=== PATIENT | female | born 1960 | race Caucasian/White ===

== ENCOUNTER 2017-03-14 17:43 | Emergency (ER) | payer OTHER ==
[2017-03-14 17:47] VITALS: BMI 27.4
[2017-03-14] MEDS ORDERED: ACETAMINOPHEN 325 MG TABLET (FP) ONE (19:04)
[2017-03-14] MEDS ORDERED: SODIUM CHLORIDE 0.9% 500 ML INFUS.BAG IV ONE (19:05)
[2017-03-14] MEDS ORDERED: ACETAMINOPHEN 500 MG TABLET (FP) PO ONE (19:13)
--- NOTE | 2017-03-14 19:20 | PDOC ---
History of Present Illness - General History Source: Patient Exam Limitations: No Limitations - History of Present Illness Initial Comments: 03/14/17 19:25 The patient is a 56 year old female with a significant past medical history of hypertension who presents to the ED with complaints of generalized malaise for one day. The patients was recently seen in the ED and was diagnosed with the flu and the patient is concerned that she has the flu as well. The patient reports back pain, myalgia, arthralgia, and a subjective fever. The patient also reports a burning sensation in her tongue a dry mouth Denies chest pain or shortness of breath. Denies abdominal pain, nausea, vomiting, or diarrhea. Denies any other symptoms. <John Justin - Last Filed: 03/14/17 19:30> <Kimi Bashir - Last Filed: 03/14/17 20:13> - General Chief Complaint: Pain Stated Complaint: HEADACHE JOINT PAIN Time Seen by Provider: 03/14/17 17:49 Past History <John Justin - Last Filed: 03/14/17 19:30> - Past Medical History HTN: Yes - Psycho/Social/Smoking Cessation Hx Anxiety: No Suicidal Ideation: No Smoking Status: No Smoking History: Never smoked Have you smoked in the past 12 months: No Number of Cigarettes Smoked Daily: 0 Information on smoking cessation initiated: No Hx Alcohol Use: No Drug/Substance Use Hx: No Substance Use Type: None <Kimi Bashir - Last Filed: 03/14/17 20:13> - Past Medical History Allergies/Adverse Reactions: Allergies Allergy/AdvReac Type Severity Reaction Status Date / Time No Known Allergies Allergy Verified 03/14/17 17:48 Home Medications: Ambulatory Orders Amlodipine Besylate 10 mg PO ASDIR 03/14/17 Gabapentin 200 mg PO DAILY 03/14/17 Review of Systems - Review of Systems Able to Perform ROS?: Yes Comments:: 03/14/17 19:25 CONSTITUTIONAL: + malaise, fever Absent: diaphoresis, generalized weakness, loss of appetite HEENT: + dry mouth, burning sensation of the tongue Absent: rhinorrhea, nasal congestion, throat pain, throat swelling, difficulty swallowing, mouth swelling, ear pain, eye pain, visual Changes CARDIOVASCULAR: Absent: chest pain, syncope, palpitations, irregular heart rate, lightheadedness , peripheral edema RESPIRATORY: Absent: cough, shortness of breath, dyspnea with exertion, orthopnea, wheezing, stridor, hemoptysis GASTROINTESTINAL: Absent: abdominal pain, abdominal distension, nausea, vomiting, diarrhea, constipation, melena, hematochezia GENITOURINARY: Absent: dysuria, frequency, urgency, hesitancy, hematuria, flank pain, genital pain MUSCULOSKELETAL: + myalgia, arthralgia, back pain Absent: joint swelling SKIN: Absent: rash, itching, pallor HEMATOLOGIC/IMMUNOLOGIC: Absent: easy bleeding, easy bruising, lymphadenopathy, frequent infections ENDOCRINE: Absent: unexplained weight gain, unexplained weight loss, heat intolerance, cold intolerance NEUROLOGIC: Absent: headache, focal weakness or paresthesias, dizziness, unsteady gait, seizure, mental status changes, bladder or bowel incontinence PSYCHIATRIC: Absent: anxiety, depression, suicidal or homicidal ideation, hallucinations. All Other Systems: Reviewed and Negative <John Justin - Last Filed: 03/14/17 19:30> *Physical Exam - Vital Signs Last Vital Signs Temp Pulse Resp BP Pulse Ox 101.5 F H 90 18 116/79 97 03/14/17 19:00 03/14/17 17:43 03/14/17 17:43 03/14/17 17:43 03/14/17 17:43 - Physical Exam Comments: 03/14/17 19:26 GENERAL: + febrile. Awake and alert. No acute distress. HEENT: Normocephalic, atraumatic. PERRLA, EOMI. No conjunctival pallor. Sclera are non- icteric. Moist mucous membranes. Oropharynx is clear. NECK: Supple. Full ROM. No JVD. Carotid pulses 2+ and symmetric, without bruits. No thyromegaly. NCo lymphadenopathy. CARDIOVASCULAR: Regular rate and rhythm. No murmurs, rubs, or gallops. Distal pulses are 2+ and symmetric. PULMONARY: No evidence of respiratory distress. Lungs clear to auscultation bilaterally. No wheezing, rales or rhonchi. ABDOMINAL: Soft. Non-tender. Non-distended. No rebound or guarding. No organomegaly. Normoactive bowel sounds. MUSCULOSKELETAL Normal range of motion at all joints. No bony deformities or tenderness. No CVA tenderness. EXTREMITIES: No cyanosis. No clubbing. No edema. No calf tenderness. SKIN: Warm and dry. Normal capillary refill. No rashes. No jaundice. NEUROLOGICAL: Alert, awake, appropriate. Cranial nerves 2-12 intact. No deficits to light touch and temperature in face, upper extremities and lower extremities. No motor deficits in the in face, upper extremities and lower extremities. Normoreflexic in the upper and lower extremities. Normal speech. Toes are down- going bilaterally. Gait is normal without ataxia. PSYCHIATRIC: Cooperative. Good eye contact. Appropriate mood and affect. <John Justin - Last Filed: 03/14/17 19:30> - Vital Signs Last Vital Signs Temp Pulse Resp BP Pulse Ox 101.5 F H 90 18 116/79 97 03/14/17 19:00 03/14/17 17:43 03/14/17 17:43 03/14/17 17:43 03/14/17 17:43 <Kimi Bashir - Last Filed: 03/14/17 20:13> ED Treatment Course - LABORATORY CBC & Chemistry Diagram: 03/14/17 19:20 03/14/17 19:20 - Medications Given in the ED: ED Medications Discontinued Medications Generic Name Dose Route Start Last Admin Trade Name Freq PRN Reason Stop Dose Admin Acetaminophen 975 mg 03/14/17 19:13 03/14/17 19:13 Tylenol - PO 03/14/17 19:14 975 mg NOW ONE Administration <John Justin - Last Filed: 03/14/17 19:30> - LABORATORY CBC & Chemistry Diagram: 03/14/17 19:20 03/14/17 19:20 - RADIOLOGY Radiology Studies Ordered: Category Date Time Status CHEST PA & LAT [RAD] Stat Radiology 03/14/17 19:03 Ordered - Medications Given in the ED: ED Medications Discontinued Medications Generic Name Dose Route Start Last Admin Trade Name Freq PRN Reason Stop Dose Admin Acetaminophen 975 mg 03/14/17 19:13 03/14/17 19:13 Tylenol - PO 03/14/17 19:14 975 mg NOW ONE Administration <Kimi Bashir - Last Filed: 03/14/17 20:13> Medical Decision Making - Medical Decision Making 03/14/17 19:18 Pt comes with body aches and a flu. Her returned from [place] with the same and got her sick. She has fever and runny nose; slight cough. She has chills, no rash. SHe has a slight headache, but no neck stiffness; no N/V/D. No other complaints. Exam is fever; otherwise normal. Pt has HTN she has been compliant with all her pills. She will be hydrated in the ER. <Kimi Basihr - Last Filed: 03/14/17 20:13> *DC/Admit/Observation/Transfer - Attestations Scribe Attestion: 03/14/17 19:26 Documentation prepared by John Justin, acting as senior medical billing specialist for Kimi Bashir MD <John Justin - Last Filed: 03/14/17 19:30> - Discharge Dispostion Admit: No <Kimi Bashir - Last Filed: 03/14/17 20:13> Diagnosis at time of Disposition: Viral syndrome - Discharge Dispostion Disposition: HOME Condition at time of disposition: Stable - Referrals Referrals: Isi West [Primary Care Provider] - - Patient Instructions Printed Discharge Instructions: DI for Viral Syndrome - Post Discharge Activity Work/School Note: Back to Work
[2017-03-14 19:43] LABS: BASOPHIL 0.6 % (0-2.0); EOSINOPHIL 1.9 % (0-4.5); MCH 29.6 pg (25.7-33.7); MCHC 33.6 g/dl (32.0-36.0); MEAN CELL VOLUME 88.2 fl (80-96); NEUTROPHILS 57.9 % (42.8-82.8); PLATELET COUNT 189 K/MM3 (134-434); RDW 12.9 % (11.6-15.6); WHITE BLOOD COUNT 6.5 K/mm3 (4.0-10.0)
[2017-03-14 20:03] VITALS: BP 111/70; PULSE 70; TEMP 98.4
[2017-03-14 20:03] LABS: ALBUMIN 3.7 g/dl (3.4-5.0); BILIRUBIN,TOTAL 0.3 mg/dL (0.2-1.0); CALCIUM 9.1 mg/dL (8.5-10.1); COCKROFT - GAULT 59.9675; CREATININE 1.2 mg/dL (0.55-1.02); TOT PROT 7.8 g/dl (6.4-8.2)
[2017-03-14] MEDS ORDERED: KETOROLAC TROMETHAMINE 30 MG/1 ML VIAL IVPUSH ONE (20:12)
[2017-03-14] MEDS ORDERED: KETOROLAC TROMETHAMINE 30 MG/1 ML VIAL ONE (20:25)
--- NOTE | 2017-03-16 09:53 | EKG ---
Test Reason : Blood Pressure : / mmHG Vent. Rate : 081 BPM Atrial Rate : 081 BPM P-R Int : 160 ms QRS Dur : 108 ms QT Int : 370 ms P-R-T Axes : 031 003 020 degrees QTc Int : 429 ms NORMAL SINUS RHYTHM NORMAL ECG WHEN COMPARED WITH ECG OF 04-JAN-2014 08:43, NO SIGNIFICANT CHANGE WAS FOUND Confirmed by HALI TAVAREZ MD ([id number]) on 03/16/2017 9:52:46 AM Referred By: Confirmed By:HALI TAVAREZ MD
== END 2017-03-14 20:33 | disposition home or self-care (01) ==
LOC: JERFT 17:43 → JER 17:43
PROC: 3E0233Z Introduction of Anti-inflammatory into Muscle, Percutaneous Approach (ICD-10-PCS; principal; 2017-03-14)
DX: B34.9 Viral infection, unspecified (principal); I10 Essential (primary) hypertension
CPT/HCPCS: 36415; 71020-TC; 80053; 85025; 87804; 93005; 93010; 96372; 99283-25

== ENCOUNTER 2017-03-15 20:54 | Emergency (ER) | payer OTHER ==
[2017-03-15 21:03] VITALS: TEMP 98; BMI 27.4
--- NOTE | 2017-03-15 21:09 | PDOC ---
History of Present Illness - General Chief Complaint: Headache Stated Complaint: HEADACHE/BP PROBLEM Past History - Past Medical History Allergies/Adverse Reactions: Allergies Allergy/AdvReac Type Severity Reaction Status Date / Time No Known Allergies Allergy Verified 03/15/17 21:04 Home Medications: Ambulatory Orders Amlodipine Besylate 5 mg PO DAILY 03/14/17 Gabapentin 300 mg PO DAILY 03/14/17 Benazepril HCl 20 mg PO DAILY 03/15/17 HTN: Yes - Immunization History Immunization Up to Date: Yes - Psycho/Social/Smoking Cessation Hx Anxiety: No Suicidal Ideation: No Smoking Status: No Smoking History: Never smoked Have you smoked in the past 12 months: No Number of Cigarettes Smoked Daily: 0 Information on smoking cessation initiated: No Hx Alcohol Use: No Drug/Substance Use Hx: No Substance Use Type: None *Physical Exam - Vital Signs Last Vital Signs Temp Pulse Resp BP Pulse Ox 98.0 F 79 18 136/77 95 03/15/17 20:56 03/15/17 20:56 03/15/17 20:56 03/15/17 20:56 03/15/17 20:56
[2017-03-15] MEDS ORDERED: OXYCODONE/APAP 5/325MG COMBO TABLET PO ONE (21:23)
--- NOTE | 2017-03-15 21:33 | PDOC ---
History of Present Illness - General History Source: Patient, Family Exam Limitations: No Limitations - History of Present Illness Initial Comments: 03/15/17 21:27 Patient is a 56-year-old female with history of hypertension, headaches, cervical spine problems here with complaint of occipital headache since this morning. States she woke up with the pain and has progressively worsened throughout the day. Now rates her pain as 10/10 with no associated fever, nausea , vomiting, dizziness, photophobia. Patient states she has a history of cervical spine problems and occasionally has headaches. She was seen in the emergency room yesterday with similar issues, joint pain, chest pain, runny nose and was treated and released. PMD: Farheen Arrington PMHX: as above PSochx: Famhx: noncontributory ALL: NKDA GENERAL/CONSTITUTIONAL: [No fever or chills. No weakness. No weight change.] HEAD, EYES, EARS, NOSE AND THROAT: [No change in vision. No ear pain or discharge. No sore throat.] CARDIOVASCULAR: [No chest pain or shortness of breath.] RESPIRATORY: [No cough, wheezing, or hemoptysis.] GASTROINTESTINAL: [No nausea, vomiting, diarrhea or constipation. No rectal bleeding.] GENITOURINARY: [No dysuria, frequency, or change in urination.] MUSCULOSKELETAL: [No joint or muscle swelling or pain. No neck or back pain.] SKIN AND BREASTS: [No rash or easy bruising.] NEUROLOGIC: [No headache, vertigo, loss of consciousness, or loss of sensation.] PSYCHIATRIC: [No depression or anxiety.] ENDOCRINE: [No increased thirst. No abnormal weight change.] HEMATOLOGIC/LYMPHATIC: [No anemia, easy bleeding, or history of blood clots.] ALLERGIC/IMMUNOLOGIC: [No hives or skin allergy. No latex allergy.] GENERAL: [The patient is awake, alert, and fully oriented, in moderate painful distress.] HEAD: [Normal with no signs of trauma.] EYES: [Pupils equal, round and reactive to light, extraocular movements intact, sclera anicteric, conjunctiva clear.] ENT: [Ears normal, nares patent, oropharynx clear without exudates. Moist mucous membranes.] NECK: [Normal range of motion, supple without lymphadenopathy, JVD, or masses.] LUNGS: [Breath sounds equal, clear to auscultation bilaterally. No wheezes, and no crackles.] HEART: [Regular rate and rhythm, normal S1 and S2 without murmur, rub.] ABDOMEN: [Soft, nontender, normoactive bowel sounds. No guarding, no rebound. No masses.] EXTREMITIES: [Normal range of motion, no edema. No clubbing or cyanosis. No cords, erythema, or tenderness.] NEUROLOGICAL: [Cranial nerves II through XII grossly intact. Normal speech, normal gait.] PSYCH: [Normal mood, normal affect.] SKIN: [Warm, Dry, normal turgor, no rashes or lesions noted.] <Miguel Sanchez - Last Filed: 03/15/17 21:27> <Kimi Bashir - Last Filed: 03/16/17 04:49> - General Chief Complaint: Headache Stated Complaint: HEADACHE/BP PROBLEM Time Seen by Provider: 03/15/17 21:10 Past History - Past Medical History HTN: Yes - Immunization History Immunization Up to Date: Yes - Psycho/Social/Smoking Cessation Hx Anxiety: No Suicidal Ideation: No Smoking Status: No Smoking History: Never smoked Have you smoked in the past 12 months: No Number of Cigarettes Smoked Daily: 0 Information on smoking cessation initiated: No Hx Alcohol Use: No Drug/Substance Use Hx: No Substance Use Type: None <Miguel Sanchez - Last Filed: 03/15/17 21:27> <Kimi Bashir - Last Filed: 03/16/17 04:49> - Past Medical History Allergies/Adverse Reactions: Allergies Allergy/AdvReac Type Severity Reaction Status Date / Time No Known Allergies Allergy Verified 03/15/17 21:04 Home Medications: Ambulatory Orders Amlodipine Besylate 5 mg PO DAILY 03/14/17 Gabapentin 300 mg PO DAILY 03/14/17 Azithromycin [Zithromax -] 250 mg PO UTDICT #4 tab 03/15/17 Benazepril HCl 20 mg PO DAILY 03/15/17 Oxycodone HCl/Acetaminophen [Percocet 5/325 -] 1 tab PO Q6H #20 tablet MDD 4 *Physical Exam - Vital Signs Last Vital Signs Temp Pulse Resp BP Pulse Ox 98.0 F 79 18 136/77 95 03/15/17 20:56 03/15/17 20:56 03/15/17 20:56 03/15/17 20:56 03/15/17 20:56 <Miguel Sanchez - Last Filed: 03/15/17 21:27> - Vital Signs Last Vital Signs Temp Pulse Resp BP Pulse Ox 98.0 F 79 18 136/77 95 03/15/17 20:56 03/15/17 20:56 03/15/17 20:56 03/15/17 20:56 03/15/17 20:56 <Kimi Bashir - Last Filed: 03/16/17 04:49> ED Treatment Course - LABORATORY CBC & Chemistry Diagram: 03/15/17 21:30 03/15/17 21:30 - ADDITIONAL ORDERS Additional order review: Laboratory Results 03/15/17 03/15/17 03/15/17 21:30 21:30 21:30 INR 1.04 PTT (Actin FS) 33.5 Sodium 140 Potassium 4.1 Chloride 104 Carbon Dioxide 26 Anion Gap 10 BUN 9 D Creatinine 0.6 D Creat Clearance w eGFR > 60 Random Glucose 90 Calcium 9.2 Total Bilirubin 0.3 AST 34 D ALT 73 Alkaline Phosphatase 85 Total Protein 7.7 Albumin 3.7 03/15/17 21:30 RBC 4.37 MCV 87.7 MCHC 33.4 RDW 12.8 MPV 8.4 Neutrophils % 54.0 Lymphocytes % 28.9 D Monocytes % 14.9 H Eosinophils % 1.7 Basophils % 0.5 - RADIOLOGY Radiology Studies Ordered: Category Date Time Status HEAD CT WITHOUT CONTRAST [CT] Stat CT Scan 03/15/17 21:10 Taken - Medications Given in the ED: ED Medications Discontinued Medications Generic Name Dose Route Start Last Admin Trade Name Freq PRN Reason Stop Dose Admin Oxycodone/Acetaminophen 2 combo 03/15/17 21:23 03/15/17 21:36 Percocet 5/325 - PO 03/15/17 21:24 2 combo ONCE ONE Administration <Kimi Bashir - Last Filed: 03/16/17 04:49> Medical Decision Making - Medical Decision Making 03/15/17 21:34 Patient is a 56-year-old female with history of hypertension, headaches, cervical spine problems complaining of a headache since this morning. Patient was here yesterday for joint pain, chest pain, runny nose and was treated and released. Workup today included CT head, labs, pain meds and reassess. <Miguel Sanchez - Last Filed: 03/15/17 21:27> - Medical Decision Making 03/15/17 22:54 THIS IS A PRELIMINARY REPORT FROM IMAGING SITE INSPECTOR. EXAM: HEAD CT WITHOUT CONTRAST DATE OF SERVICE: 2017-03-15 22:03:30.0 IMAGES: 77 INDICATION: Headache ?2 days. Body ache. COMPARISON: None FINDINGS: No evidence of acute intracranial abnormality demonstrated. There is no CT evidence of acute cortical territorial infarction, bleed, mass lesion, mass effect, hydrocephalus or abnormal extraaxial collection. A small right maxillary sinus air-fluid levels suggestive of mild acute sinusitis.Bilateral mastoid air cells are clear. THIS DOCUMENT HAS BEEN ELECTRONICALLY SIGNED 03/15/17 23:22 Pt is refusing LP at this time. She understands that this is the only way to r/ o bleed or viral infection. Pt feels some improvement with percocet. She wants to go home and return if she feels worse. Pt will be given zpak for the sinusitis. We will treat with benadryl IV and reassess patient. If she still has a bad headache, we will try to convice pt to get LP again. 03/16/17 01:03 Pt feeling better with benadryl wants to go home. She will be asked to follow with PMD and return for worsening headache. She understands that LP is needed to r/o bleed; rare infections. 03/16/17 01:04 Labs are normal; unchanged from previous. <Kimi Bashir - Last Filed: 03/16/17 04:49> *DC/Admit/Observation/Transfer <Miguel Sanchez - Last Filed: 03/15/17 21:27> <Kimi Bashir - Last Filed: 03/16/17 04:49> Diagnosis at time of Disposition: Sinusitis, Headache - Discharge Dispostion Disposition: HOME Condition at time of disposition: Improved - Prescriptions Prescriptions: Oxycodone HCl/Acetaminophen [Percocet 5/325 -] 1 tab PO Q6H #20 tablet MDD 4 Azithromycin [Zithromax -] 250 mg PO UTDICT #4 tab - Referrals Referrals: Isi West [Primary Care Provider] - - Patient Instructions Printed Discharge Instructions: DI for Sinusitis, DI for Headache
[2017-03-15] MEDS ORDERED: OXYCODONE/APAP 5/325MG COMBO TABLET ONE (21:37)
[2017-03-15 21:42] LABS: BASOPHIL 0.5 % (0-2.0); EOSINOPHIL 1.7 % (0-4.5); MCH 29.3 pg (25.7-33.7); MCHC 33.4 g/dl (32.0-36.0); MEAN CELL VOLUME 87.7 fl (80-96); MEAN PLT VOLUME 8.4 fl (7.5-11.1); PLATELET COUNT 191 K/MM3 (134-434); RDW 12.8 % (11.6-15.6); WHITE BLOOD COUNT 7.6 K/mm3 (4.0-10.0)
[2017-03-15 21:53] LABS: INR 1.04 (0.82-1.09); PROTHROMBIN TIME (PATIENT) 11.4 SEC (9.98-11.88)
[2017-03-15 22:28] LABS: ALBUMIN 3.7 g/dl (3.4-5.0); ALK PHOS 85 U/L (45-117); ANION GAP 10 (8-16); BILIRUBIN,TOTAL 0.3 mg/dL (0.2-1.0); CALCIUM 9.2 mg/dL (8.5-10.1); CO2 26 mmol/L (21-32); COCKROFT - GAULT 119.9435; CREATININE 0.6 mg/dL (0.55-1.02); GLUCOSE,RANDOM 90 mg/dL (74-106); SGOT/AST 34 U/L (15-37); SGPT/ALT 73 U/L (12-78); TOT PROT 7.7 g/dl (6.4-8.2)
[2017-03-15] MEDS ORDERED: AZITHROMYCIN 250 MG TABLET (FP) PO ONE (22:54)
[2017-03-15] MEDS ORDERED: AZITHROMYCIN 250 MG TABLET (FP) ONE (22:58)
[2017-03-15] MEDS ORDERED: METOCLOPRAMIDE HCL INJECTION 10 MG/2 ML VIAL IVPB ONE (23:47)
[2017-03-15] MEDS ORDERED: METOCLOPRAMIDE HCL INJECTION 10 MG/2 ML VIAL ONE (23:49)
[2017-03-16 00:05] VITALS: BP 114/74; PULSE 62
== END 2017-03-16 00:31 | disposition home or self-care (01) ==
LOC: JER 20:54
PROC: 3E033GC Introduction of Other Therapeutic Substance into Peripheral Vein, Percutaneous Approach (ICD-10-PCS; principal; 2017-03-15)
DX: J01.00 Acute maxillary sinusitis, unspecified (principal)
CPT/HCPCS: 36415; 70450-TC; 80053; 85025; 85610; 85730; 96374; 96375; 99282-25

== ENCOUNTER 2018-08-02 10:01 | Emergency (ER) | payer OTHER ==
[2018-08-02 10:08] VITALS: BP 133/80; PULSE 86; TEMP 98.4
[2018-08-02] MEDS ORDERED: KETOROLAC TROMETHAMINE 60 MG/2 ML VIAL IM ONE (11:21)
[2018-08-02] MEDS ORDERED: KETOROLAC TROMETHAMINE 60 MG/2 ML VIAL ONE (11:24)
--- NOTE | 2018-08-02 11:25 | PDOC ---
History of Present Illness - General Chief Complaint: Pain Stated Complaint: LEG PAIN Time Seen by Provider: 08/02/18 11:18 - History of Present Illness Initial Comments: 08/02/18 11:22 57-year-old female with a past medical history significant for hypertension, she also has chronic neck pain. Presents for evaluation of lower back brain with posterior lateral right leg radiculopathy 3 weeks increasing in severity over the last 2 days without any precipitating traumatic event. She denies loss of bowel or bladder function. Past History - Past Medical History Allergies/Adverse Reactions: Allergies Allergy/AdvReac Type Severity Reaction Status Date / Time No Known Allergies Allergy Verified 08/02/18 10:04 Home Medications: Ambulatory Orders Amlodipine Besylate 5 mg PO DAILY 03/14/17 Benazepril HCl 20 mg PO DAILY 03/15/17 Cyclobenzaprine HCl [Flexeril -] 10 mg PO HS 08/02/18 Meloxicam 15 mg PO BID 08/02/18 Methylprednisolone [Medrol Dose Vinny] 4 mg PO ASDIR #21 tablet 08/02/18 COPD: No HTN: Yes Other medical history: NECK - Immunization History Immunization Up to Date: Yes - Suicide/Smoking/Psychosocial Hx Smoking Status: No Smoking History: Never smoked Have you smoked in the past 12 months: No Number of Cigarettes Smoked Daily: 0 Information on smoking cessation initiated: No Hx Alcohol Use: No Drug/Substance Use Hx: No Substance Use Type: None Review of Systems - Review of Systems Musculoskeletal: Yes: See HPI, Back Pain All Other Systems: Reviewed and Negative *Physical Exam - Vital Signs Last Vital Signs Temp Pulse Resp BP Pulse Ox 98.4 F 86 18 133/80 100 08/02/18 10:05 08/02/18 10:05 08/02/18 10:05 08/02/18 10:05 08/02/18 10:05 - Physical Exam Comments: Lumbar spine skin color and temperature are normal range of motion is decreased secondary to pain and stiffness. There is moderate right-sided paralumbar musculature spasm and tenderness. 5 out of 5 strength in bilateral lower extremities without gross sensorimotor deficits thighs and calves are soft and nontender. There is a positive straight leg raise test on the right negative on the left. She is neurovascular intact. 08/02/18 11:22 Medical Decision Making - Medical Decision Making Lumbar radiculopathy. I'll treat her with a one-time shot of Toradol in the emergency room and send her home with a Medrol Dosepak to be started tomorrow. Discontinuing her meloxicam while on the Medrol Dosepak. I will also give her orthopedic spine surgery follow-up. 08/02/18 11:23 *DC/Admit/Observation/Transfer Diagnosis at time of Disposition: Lumbar radicular pain - Discharge Dispostion Disposition: HOME Condition at time of disposition: Stable Decision to Admit order: No - Prescriptions Prescriptions: Methylprednisolone [Medrol Dose Vinny] 4 mg PO ASDIR #21 tablet - Referrals Referrals: Isi West [Primary Care Provider] - Raymond Montes De Oca MD [Staff Physician] - - Patient Instructions Printed Discharge Instructions: DI for Lumbar Radiculopathy, Lumbar Radiculopathy Additional Instructions: Please follow up with spine surgery for further evaluation and treatment options in 2-3 days. Please discontinue the use of the meloxicam while on the steroid pack. Start the steroid pack tomorrow. Return to the emergency room should symptoms worsen or go unresolved. Continue to take the Flexeril as directed. 3 times a day. - Post Discharge Activity
== END 2018-08-02 11:41 | disposition home or self-care (01) ==
LOC: JERFT 10:01
PROC: 3E0233Z Introduction of Anti-inflammatory into Muscle, Percutaneous Approach (ICD-10-PCS; principal; 2018-08-02)
DX: M54.16 Radiculopathy, lumbar region (principal); M54.2 Cervicalgia; G89.29 Other chronic pain
CPT/HCPCS: 96372; 99281-25

== ENCOUNTER 2019-02-19 13:22 | Emergency (ER) | payer OTHER ==
[2019-02-19 13:39] VITALS: TEMP 97.8; BMI 29.2
--- NOTE | 2019-02-19 13:52 | PDOC ---
History of Present Illness - General Chief Complaint: Chest Pain Stated Complaint: CHEST PAIN/ HYPERTENSION Time Seen by Provider: 02/19/19 13:52 History Source: Patient Exam Limitations: Language Barrier - History of Present Illness Initial Comments: 58 yo obese F w a pmh of HTN, HCL, chronic neck pain and headaches presents to the ER with sub-sternal chest pressure. The patient states the pain begain 4 days prior but came in today because it acutely worsened this morning and the patient became short of breath and had a headache. The patient went to [facility] and took her blood pressure where it read ~139/75. The patient became very worried as they thought this was extremely high and the patient came straight to the ER to be evaluated. The patient takes amlodipine and benzapril for HTN but now she is starting to think her HTN is not well controlled with her current meds. PCP: Isi West Guide Dog Mobility Instructor: None PSH: 2 C-sections Allergies: NKA, NKDA Social Hx: Denies smoking, drinking, or other substance usage Past History - Past Medical History Allergies/Adverse Reactions: Allergies Allergy/AdvReac Type Severity Reaction Status Date / Time No Known Allergies Allergy Verified 02/19/19 13:33 Home Medications: Ambulatory Orders Amlodipine Besylate 5 mg PO DAILY 03/14/17 Benazepril HCl 20 mg PO DAILY 03/15/17 Meloxicam 15 mg PO BID 08/02/18 COPD: No HTN: Yes - Immunization History Immunization Up to Date: Yes - Suicide/Smoking/Psychosocial Hx Smoking Status: No Smoking History: Never smoked Have you smoked in the past 12 months: No Number of Cigarettes Smoked Daily: 0 Hx Alcohol Use: No Drug/Substance Use Hx: No Substance Use Type: None Review of Systems - Review of Systems Able to Perform ROS?: Yes Constitutional: No: Chills, Diaphoresis, Fever HEENTM: No: Eye Pain, Blurred Vision Respiratory: Yes: Shortness of Breath Cardiac (ROS): Yes: Chest Pain, Lightheadedness ABD/GI: No: Blood Streaked Bowels, Constipated, Diarrhea, Difficulty Swallowing , Nausea, Poor Appetite, Poor Fluid Intake, Vomiting, Indigestion, Abdominal cramping Musculoskeletal: No: Back Pain, Joint Pain Integumentary: No: Change in Color, Dryness, Erythema Neurological: Yes: Headache. No: Numbness, Paresthesia, Dizziness Psychiatric: No: Anxiety, Depression, Frequent Crying Endocrine: No: Excessive Sweating, Flushing Hematologic/Lymphatic: No: Anemia, Easy Bleeding, Easy Bruising *Physical Exam - Vital Signs Last Vital Signs Temp Pulse Resp BP Pulse Ox 97.8 F 77 18 119/81 97 02/19/19 13:34 02/19/19 13:34 02/19/19 13:34 02/19/19 13:34 02/19/19 13:34 - Physical Exam General Appearance: Yes: Nourished, Appropriately Dressed. No: Apparent Distress HEENT: positive: EOMI, RINA, Normal ENT Inspection, Normal Voice Neck: positive: Supple Respiratory/Chest: positive: Lungs Clear, Normal Breath Sounds. negative: Respiratory Distress, Accessory Muscle Use Cardiovascular: positive: Regular Rhythm, Regular Rate, S1, S2 Vascular Pulses: Dorsalis-Pedis (R): 2+, Doralis-Pedis (L): 2+ Gastrointestinal/Abdominal: positive: Normal Bowel Sounds, Soft Rectal Exam: positive: deferred Lymphatic: negative: Adenopathy Musculoskeletal: positive: Normal Inspection. negative: CVA Tenderness Extremity: positive: Normal Capillary Refill, Normal Inspection, Normal Range of Motion Integumentary: positive: Normal Color, Dry, Warm Neurologic: positive: band head saw operator II-XII NML intact, Fully Oriented, Alert, Normal Mood/ Affect, Normal Response, Motor Strength 5/5 ED Treatment Course - LABORATORY CBC & Chemistry Diagram: 02/19/19 14:07 02/19/19 14:07 - RADIOLOGY Radiograph Interpretation: Head CT: Rule out bleed CT scan of the brain without intravenous contrast. Compared to prior CT scan of the head dated 03/15/2017 There is mild volume loss and ventricular dilatation. The basal cisterns appear unremarkable. No mass lesion, gross acute infarct or intracranial hemorrhage are identified. Visualized paranasal sinuses and mastoid air cells are well-aerated. The calvarium is intact. Impression: No evidence of a focal intracranial lesion or hemorrhage seen. Correlate clinically to determine further evaluation and follow -up. Medical Decision Making - Medical Decision Making 58 yo obese F w a pmh of HTN, HCL, chronic neck pain and headaches presents to the ER with sub-sternal chest pressure. The patient states the pain begain 4 days prior but came in today because it acutely worsened this morning and the patient became short of breath and had a headache. The patient went to [facility] and took her blood pressure where it read ~139/75. The patient became very worried as they thought this was extremely high and the patient came straight to the ER to be evaluated. The patient takes amlodipine and benzapril for HTN but now she is starting to think her HTN is not well controlled with her current meds. VS: WNL DDx IBNLT: ACS/NM, Arrhythmia, electrolyte/metabolic disturbance, PE, pneumothorax, PNA, brain bleed, CVA/TIA. Plan: Labs - Trop x2, Urine, CXR, head CT, EKG, IV hydration, re-assess. EKG: Normal sinus rate of 72. Flattened T waves in lead 3 Labs unremarkable. Trop x2 negative. Urine normal. Chest x-ray and Head Ct unremarkable Giving patient's PCP a phone call to ensure she can follow up in the next 2 days and that the PCP agrees with our management plan. - Call placed to Dr. Yañez's office at 6:15 pm. - supervisor joiners creative project manager said she would send a message out to the Doc and the PCP would give us a call back. - Spoke with electronic instrument trades worker covering physician Dr. Jonas - who agrees with our management plan and disposition and says patient can call the office and have an appointment any day this week. Will DC w PCP follow up and Cards referal - Dr. David *DC/Admit/Observation/Transfer Diagnosis at time of Disposition: Chest pain - Discharge Dispostion Disposition: HOME Condition at time of disposition: Stable Decision to Admit order: No - Referrals Referrals: Isi West [Primary Care Provider] - - Patient Instructions Printed Discharge Instructions: DI for Atypical Chest Pain, DI for Chest Pain Additional Instructions: You came into the Er with chest pain and a headache. We looked at your blood and urine and found no abnormalities. We did a chest x-ray and a cat scan of your head which were all completely normal. We believe you did not have a heart attack. We spoke with your primary care doctor's office who said they can see you as a follow up patient in the next 2 days. Please make sure to call up your primary care doctors office and schedule a follow up appointment. We are also referring you to a pipefitter to schedule an appointment with - Dr. David. Please call his office up and schedule an appointment. Drink plenty of fluids. Take motrin/ibuprofen/advil and tylenol as needed for pain control. Come back to the ER immediately if your pain worsens, you start vomiting, get a fever, or have any other new or worsening concerns. Thank you for coming to the [facility] ER. We hope you feel better soon! Print Language: SERBIAN - Post Discharge Activity
[2019-02-19 14:26] LABS: BASO % 0.5 % (0-2.0); EOS % 1.5 % (0-4.5); HEMATOCRIT 39.4 % (32.4-45.2); HEMOGLOBIN 13.1 GM/dL (10.7-15.3); LYMPH % 26.4 % (8-40); MCH 29.6 pg (25.7-33.7); MCHC 33.3 g/dl (32.0-36.0); MEAN PLT VOLUME 8.4 fl (7.5-11.1); MONO % 11.1 % (3.8-10.2); NEUT % 60.5 % (42.8-82.8); PLATELET COUNT 226 K/MM3 (134-434); RBC 4.43 M/mm3 (3.60-5.2); RDW 13.3 % (11.6-15.6); WHITE BLOOD COUNT 8.2 K/mm3 (4.0-10.0)
[2019-02-19 14:47] LABS: N-TERMINAL BNP 16.9 pg/ml (5-125)
[2019-02-19 14:48] LABS: ALBUMIN 3.5 g/dl (3.4-5.0); ALK PHOS 68 U/L (45-117); ANION GAP 7 MMOL/L (8-16); BILIRUBIN,TOTAL 0.2 mg/dL (0.2-1); BLOOD UREA NITROGEN 10 mg/dL (7-18); CALCIUM 8.9 mg/dL (8.5-10.1); CHLORIDE 105 mmol/L (98-107); CO2 29 mmol/L (21-32); CREATININE 0.6 mg/dL (0.55-1.3); GLUCOSE,RANDOM 87 mg/dL (74-106); MAGNESIUM 2.3 mg/dL (1.8-2.4); POTASSIUM 4.2 mmol/L (3.5-5.1); SGOT/AST 28 U/L (15-37); SGPT/ALT 61 U/L (13-61); SODIUM 141 mmol/L (136-145); TOT PROT 7.4 g/dl (6.4-8.2)
[2019-02-19 15:12] LABS: INR 1.03 (0.83-1.09); PROTHROMBIN TIME (PATIENT) 12.1 SEC (9.7-13.0)
--- NOTE | 2019-02-19 15:32 | PDOC ---
Documentation entered by Rosa Maier SCRIBE, acting as scribe for Jesús Diggs MD. Jesús Diggs MD: This documentation has been prepared by the [employer] aw[employer] Sammi, SCRIBE, under my direction and personally reviewed by me in its entirety. I confirm that the documentation accurately reflects all work, treatment, procedures, and medical decision making performed by me. Attending Attestation - Resident Resident Name: Nitin Ronquillo - ED Attending Attestation I have performed the following: I have examined & evaluated the patient, The case was reviewed & discussed with the resident, I agree w/resident's findings & plan - HPI HPI: 02/19/19 15:26 58-year-old female with history of hypertension, high cholesterol presents with about one week of intermittent episodes of chest pain and headache. Patient reports about one to 2 episodes daily over the last week of random onset of headache followed by chest pain. Symptoms are nonexertional, she lives in a three-story workup and has no reproducible symptoms with exertion. The symptoms last about 20-30 minutes and then resolved after some brief sweating, returned to baseline. Denies any fever/chills/cough, has baseline and if they ankle edema , denies any other changes or PE risk factors. Patient did have a stress test 3 years ago under almost identical circumstances , stress tests at that time was negative and no further workup was indicated. - Physicial Exam PE: 02/19/19 15:29 Vital signs normal Well-appearing, obese woman seated in stretcher Heart is regular, lungs are clear Abdomen benign One plus pitting edema bilaterally in the pretibial region, no calf tenderness, 2+ distal pulses Neurologically intact - Medical Decision Making 02/19/19 15:29 58-year-old female with atypical chest complaints over the last week, nonexertional and associated with a self resolving headache. ACS on differential , but overall low risk with heart score of 3. No PE risk factors, no evidence to suggest infectious etiology. Question metabolic/endocrine, states completed menopause already. Check labs including troponin 2 EKG, chest x-ray ct head for headache Monitor, discuss disposition with PCP. If workup is within normal limits, and given low heart score, can consider expedited outpatient workup. Heart Score/ECG Review - History History: Slightly suspicious - Electrocardiogram EKG: Normal - Age Age: 45-65 - Risk Factors Based on the list above the patient has:: >/=3 risk factors or Hx atherosclerotic disease - Troponin Troponin: </= normal limit - Score Heart Score - Total: 3 #1 ECG reviewed & interpreted by me at: 13:17 General ECG Interpretation: Sinus Rhythm, Normal Rate (72), Normal Intervals ( qtc 440), No acute ischemic changes Compared to previous ECG there are: No significant change (c/w 03/04)
[2019-02-19 16:29] LABS: PH,URINE 8.5 (5.0-8.0); URINE APPEARANCE CLEAR; URINE BILIRUBIN NEGATIVE (NEGATIVE); URINE COLOR YELLOW; URINE GLUCOSE (UA) NEGATIVE (NEGATIVE); URINE KETONE NEGATIVE (NEGATIVE); URINE LEUK ESTERASE NEGATIVE (NEGATIVE); URINE NITRITE NEGATIVE (NEGATIVE); URINE PROTEIN NEGATIVE (NEGATIVE); URINE UROBILINOGEN 0.2 mg/dL (0.2-1.0)
[2019-02-19 19:02] VITALS: BP 122/79; PULSE 72
--- NOTE | 2019-02-20 09:19 | EKG ---
Test Reason : Blood Pressure : / mmHG Vent. Rate : 072 BPM Atrial Rate : 072 BPM P-R Int : 184 ms QRS Dur : 100 ms QT Int : 402 ms P-R-T Axes : 021 -07 013 degrees QTc Int : 440 ms NORMAL SINUS RHYTHM NORMAL ECG WHEN COMPARED WITH ECG OF 14-MAR-2017 18:44, NO SIGNIFICANT CHANGE WAS FOUND Confirmed by DAMASO WANG MD ([id number]) on 02/20/2019 9:19:05 AM Referred By: Confirmed By:DAMASO WANG MD
== END 2019-02-19 19:01 | disposition home or self-care (01) ==
LOC: JER 13:22
DX: R07.9 Chest pain, unspecified (principal); I10 Essential (primary) hypertension; E78.00 Pure hypercholesterolemia, unspecified; M54.2 Cervicalgia; G89.29 Other chronic pain
CPT/HCPCS: 36415; 70450-TC; 71046-TC-FY; 80053; 81003; 82550; 83735; 83880; 84484; 84703; 85025; 85610; 86850; 86900; 86901; 87086; 93005; 93010; 99282-25